=== PATIENT | female | born 1990 | race African-American/Black ===

== ENCOUNTER 2016-04-12 20:14 | Emergency (ER) | payer OTHER ==
[~2016-04-12] VITALS: Ht 182.9 cm; Wt 155.0 kg
[~2016-04-12 20:14] MED LIST: ALBU8I INH; BUSP10 PO; ZOFR4TAB3 SL
[2016-04-12 20:15] VITALS: BP 134/80; PULSE 129; RESP 18; TEMP 98.3; O2SAT 98
[2016-04-12] MEDS ORDERED: SODIUM CHLOR 0.9% 1000 ML INJ 1,000 ML IV SCH (20:53)
[2016-04-12] MEDS ORDERED: SODIUM CHLORIDE 0.9% FLUSH 5 ML FLUSH IVF PRN (21:00)
--- NOTE | 2016-04-12 21:03 | PD ---
HPI Chief Complaint: Neuro Symptoms/ Deficits Time Seen by Provider: 20:43 Travel History International Travel<30 days: No Contact w/Intl Traveler<30days: No Traveled to known affect area: No History of Present Illness HPI The patient is a 25-year-old after [place] female who presents to the emergency department with multiple complaints. The patient states she was out walking earlier today when she developed some suprapubic abdominal discomfort. The patient returned home and started to have a panic attack. The patient does have a history of anxiety and panic attacks, states she's not had a panic attack since last June. The patient felt like the right side of her face and right shoulder and right breast were weak and numb. The patient denied any dysarthria, difficulty moving her upper or lower extremities and denied any difficulty ambulating. The patient has had multiple somatic complaints in the past with her anxiety and panic attacks, but cannot attribute a specific identifying factor for today's events. The patient denies any history of TIA, CVA, hypertension, hyperlipidemia, or hypercoagulable disease. The patient denies any weakness or numbness upon presentation to the emergency department. The patient does take albuterol inhaler as needed. She does have a history of left meniscal surgery. She denies any known drug allergies. The patient's symptoms are mild to moderate, self resolving except for the suprapubic discomfort. The patient denies any dysuria, frequency, urgency, vaginal bleeding, or vaginal discharge. PFSH Past Medical History Hx Anticoagulant Therapy: No Asthma: Yes (since childhood) Anxiety: Yes Cardiovascular Problems: No Chemotherapy: No Cerebrovascular Accident: No Diabetes: No Diminished Hearing: No Respiratory: Yes ?: Not : 1 Para: 1 Past Surgical History Hysterectomy: No Other Surgery: Yes (L MENISCUS REPAIR 2006) Social History Alcohol Use: No Tobacco Use: No Substance Use: No Allergies-Medications (Allergen,Severity, Reaction): Coded Allergies: No Known Allergies (Unverified , 09/10/15) Reported Meds & Prescriptions Reported Meds & Active Scripts Active Zofran ODT (Ondansetron HCl) 4 Mg Tab 4 Mg SL Q6HR PRN FOR NAUSEA/VOMITING Buspar 10 mg Tab (Buspirone HCl) 10 Mg Tab 10 Mg PO Q8 PRN Ventolin Hfa (Albuterol Sulfate) 8 Gm Aero 2 Puff INH Q4 PRN Review of Systems Except as stated in HPI: all other systems reviewed are Neg General / Constitutional: No: Fever Eyes: No: Blurred Vision, Visual changes HENT: No: Headaches, Lightheadedness Cardiovascular: No: Chest Pain or Discomfort Gastrointestinal: No: Nausea, Vomiting, Diarrhea, Abdominal Pain Genitourinary: Positive: Pelvic Pain, No: Urgency, Frequency, Hematuria, Discharge, Vaginal Bleeding Musculoskeletal: No: Myalgias Skin: No Rash Neurologic: No: Weakness, Dizziness Psychiatric: Positive: Anxiety, No: Depression Physical Exam Narrative GENERAL: Awake, alert, pleasant 25-year-old female who appears her stated age and is in no acute respiratory distress. SKIN: Warm and dry. HEAD: Atraumatic. Normocephalic. EYES: Pupils equal and round. 4 mm bilateral and reactive. EOMs are intact. The patient is able to see fingers at a distance of 2 feet without difficulty. ENT: No nasal bleeding or discharge. Mucous membranes pink and moist. NECK: Trachea midline. No JVD. CARDIOVASCULAR: Regular rate and rhythm. No murmur appreciated. Heart rate in the 80s. RESPIRATORY: No accessory muscle use. Clear to auscultation. Breath sounds equal bilaterally. GASTROINTESTINAL: Abdomen soft, non-tender, nondistended. Obese, mild suprapubic discomfort. Back: No CVA tenderness. MUSCULOSKELETAL: No obvious deformities. No clubbing. No cyanosis. No edema. NEUROLOGICAL: Awake and alert. No obvious cranial nerve deficits. Motor grossly within normal limits. Normal speech. No dysarthria noted. Smile is symmetric. No drift of the upper or lower extremities. Sensation is symmetric on the face, arms, legs bilaterally. Finger to nose is normal. [id number] is normal. Negative station Romberg. Strength with abduction of the shoulders bilateral spinal 5. Extension of the elbows bilaterally is 5 out of 5. [employer] strength is 5 out of 5. Flexion of the elbows bilaterals 5 out of 5. Extension of the knees is 5 out of 5 bilateral. Plantar flexion is 5 out of 5. Flexion of the great toe bilaterally is 5 out of 5. Hip flexion bilaterally is 5 out of 5. PSYCHIATRIC: Appropriate mood and affect; insight and judgment normal. Data Data Last Documented VS Vital Signs Date Time Temp Pulse Resp B/P Pulse Ox O2 Delivery O2 Flow Rate FiO2 04/12/16 21:27 85 18 117/71 99 Room Air 04/12/16 20:15 98.3 Orders Complete Blood Count With Diff (04/12/16 20:53) Comprehensive Metabolic Panel (04/12/16 20:53) Urinalysis - C+S If Indicated (04/12/16 20:53) Iv Access Insert/Monitor (04/12/16 20:53) Ecg Monitoring (04/12/16 20:53) Oximetry (04/12/16 20:53) Sodium Chlor 0.9% 1000 Ml Inj (Ns 1000 M (04/12/16 20:53) Sodium Chloride 0.9% Flush (Ns Flush) (04/12/16 21:00) Ed Urine Pregnancytest Poc (04/12/16 20:53) Labs Laboratory Tests Test 04/12/16 21:00 White Blood Count 8.2 TH/MM3 Red Blood Count 4.74 MIL/MM3 Hemoglobin 11.2 GM/DL Hematocrit 35.0 % Mean Corpuscular Volume 73.8 FL Mean Corpuscular Hemoglobin 23.5 PG Mean Corpuscular Hemoglobin 31.9 % Concent Red Cell Distribution Width 15.4 % Platelet Count 300 TH/MM3 Mean Platelet Volume 8.3 FL Neutrophils (%) (Auto) 59.0 % Lymphocytes (%) (Auto) 34.2 % Monocytes (%) (Auto) 4.9 % Eosinophils (%) (Auto) 1.2 % Basophils (%) (Auto) 0.7 % Neutrophils # (Auto) 4.8 TH/MM3 Lymphocytes # (Auto) 2.8 TH/MM3 Monocytes # (Auto) 0.4 TH/MM3 Eosinophils # (Auto) 0.1 TH/MM3 Basophils # (Auto) 0.1 TH/MM3 CBC Comment AUTO DIFF Differential Comment AUTO DIFF CONFIRMED Platelet Estimate NORMAL Platelet Morphology Comment NORMAL Urine Color COLORLESS Urine Turbidity CLEAR Urine pH 6.5 Urine Specific [place] 1.001 Urine Protein NEG mg/dL Urine Glucose (UA) NEG mg/dL Urine Ketones NEG mg/dL Urine Occult Blood NEG Urine Nitrite NEG Urine Bilirubin NEG Urine Urobilinogen LESS THAN 2.0 MG/DL Urine Leukocyte Esterase NEG Urine RBC LESS THAN 1 /hpf Urine WBC 1 /hpf Urine Squamous Epithelial <1 /hpf Cells Microscopic Urinalysis Comment CULT NOT INDICATED Sodium Level 138 MEQ/L Potassium Level 4.0 MEQ/L Chloride Level 104 MEQ/L Carbon Dioxide Level 26.9 MEQ/L Anion Gap 7 MEQ/L Blood Urea Nitrogen 4 MG/DL Creatinine 0.91 MG/DL Estimat Glomerular Filtration 93 ML/MIN Rate Random Glucose 127 MG/DL Calcium Level 8.9 MG/DL Total Bilirubin 0.3 MG/DL Aspartate Amino Transf 38 U/L (AST/SGOT) Alanine Aminotransferase 45 U/L (ALT/SGPT) Alkaline Phosphatase 106 U/L Total Protein 9.0 GM/DL Albumin 3.8 GM/DL MDM Medical Decision Making Medical Screen Exam Complete: Yes Emergency Medical Condition: Yes Medical Record Reviewed: Yes Interpretation(s) Laboratory Tests Test 04/12/16 21:00 White Blood Count 8.2 TH/MM3 Red Blood Count 4.74 MIL/MM3 Hemoglobin 11.2 GM/DL Hematocrit 35.0 % Mean Corpuscular Volume 73.8 FL Mean Corpuscular Hemoglobin 23.5 PG Mean Corpuscular Hemoglobin 31.9 % Concent Red Cell Distribution Width 15.4 % Platelet Count 300 TH/MM3 Mean Platelet Volume 8.3 FL Neutrophils (%) (Auto) 59.0 % Lymphocytes (%) (Auto) 34.2 % Monocytes (%) (Auto) 4.9 % Eosinophils (%) (Auto) 1.2 % Basophils (%) (Auto) 0.7 % Neutrophils # (Auto) 4.8 TH/MM3 Lymphocytes # (Auto) 2.8 TH/MM3 Monocytes # (Auto) 0.4 TH/MM3 Eosinophils # (Auto) 0.1 TH/MM3 Basophils # (Auto) 0.1 TH/MM3 CBC Comment AUTO DIFF Differential Comment AUTO DIFF CONFIRMED Platelet Estimate NORMAL Platelet Morphology Comment NORMAL Urine Color COLORLESS Urine Turbidity CLEAR Urine pH 6.5 Urine Specific [place] 1.001 Urine Protein NEG mg/dL Urine Glucose (UA) NEG mg/dL Urine Ketones NEG mg/dL Urine Occult Blood NEG Urine Nitrite NEG Urine Bilirubin NEG Urine Urobilinogen LESS THAN 2.0 MG/DL Urine Leukocyte Esterase NEG Urine RBC LESS THAN 1 /hpf Urine WBC 1 /hpf Urine Squamous Epithelial <1 /hpf Cells Microscopic Urinalysis Comment CULT NOT INDICATED Sodium Level 138 MEQ/L Potassium Level 4.0 MEQ/L Chloride Level 104 MEQ/L Carbon Dioxide Level 26.9 MEQ/L Anion Gap 7 MEQ/L Blood Urea Nitrogen 4 MG/DL Creatinine 0.91 MG/DL Estimat Glomerular Filtration 93 ML/MIN Rate Random Glucose 127 MG/DL Calcium Level 8.9 MG/DL Total Bilirubin 0.3 MG/DL Aspartate Amino Transf 38 U/L (AST/SGOT) Alanine Aminotransferase 45 U/L (ALT/SGPT) Alkaline Phosphatase 106 U/L Total Protein 9.0 GM/DL Albumin 3.8 GM/DL Differential Diagnosis Differential diagnosis includes anxiety, panic attack, paresthesias, CVA, TIA, intracranial hemorrhage, subarachnoid hemorrhage, hypocalcemia, hypokalemia, UTI. Narrative Course The patient's neurologic exam is unremarkable, her NIHSS is 0. There are no identifiable neurologic deficits. IV was established, labs are drawn and sent, and the patient was placed on cardiac telemetry monitoring and continuous pulse oximetry monitoring. The patient has no headache and no meningeal signs, I do not believe CT the brain is warranted with no neurologic deficits, headache, and no current symptoms. I doubt CVA/TIAs patient has no risk factors or history of hypercoagulable disorders. CMP was sent to lab to evaluate calcium and potassium. UA was sent to lab and bedside UA test was obtained. The patient was comfortable with this plan of care and workup after discussion. Laboratory evaluation is unremarkable, electrolytes including sodium, potassium, and calcium are normal. Bedside test was negative. UA is negative. Patient's vitals were reassessed, heart rate was in the 70s after having a discussion with the patient. Patient stable for outpatient follow-up. Diagnosis Primary Impression: Paresthesias Additional Impression: Pelvic pain Patient Instructions: General Instructions Additional Instructions: Follow-up with your primary physician. Please provide the patient a copy of her labs at discharge. Return if symptoms worsen or progress. Med/Other Pt SpecificInfo: No Change to Meds Disposition: 01 DISCHARGE HOME Condition: Stable Rodolfo Wagner MD Apr 12, 2016 21:03
[2016-04-12 21:16] VITALS: O2SAT 99
[2016-04-12 21:24] LABS: AUTOMATED NEUTROPHIL # 4.8 TH/MM3 (1.8-7.7); BASOPHIL # 0.1 TH/MM3 (0-0.2); BASOPHIL % 0.7 % (0.0-2.0); EOSINOPHIL # 0.1 TH/MM3 (0-0.4); EOSINOPHIL % 1.2 % (0.0-4.0); LYMPH % 34.2 % (9.0-44.0); LYMPHOCYTE # 2.8 TH/MM3 (1.0-4.8); MEAN CELL VOLUME 73.8 FL (80.0-100.0); MEAN CORPUSCULAR HEMOGLOBIN 23.5 PG (27.0-34.0); MEAN CORPUSCULAR HGB CONC 31.9 % (32.0-36.0); MONO % 4.9 % (0.0-8.0); PLATELET COUNT 300 TH/MM3 (150-450); RED BLOOD COUNT 4.74 MIL/MM3 (4.00-5.30); RED CELL DISTRIBUTION WIDTH 15.4 % (11.6-17.2); WHITE BLOOD COUNT 8.2 TH/MM3 (4.0-11.0)
[2016-04-12 21:27] VITALS: BP 117/71; PULSE 85; RESP 18; O2SAT 99
[2016-04-12 21:27] LABS: BLOOD, URINE NEG (NEG); COMMENT (UR) CULT NOT INDICATED; CULTURE IF INDICATED CULT NOT INDICATED; GLUCOSE,URINE NEG (NEG); HEMO FLAGS AUTO DIFF; KETONE, URINE NEG (NEG); NITRITE,URINE NEG (NEG); PH, URINE 6.5 (5.0-8.5); SQUAMOUS EPITHELIAL CELL URINE <1 /hpf (0-5); URINE COLOR COLORLESS (YELLW/STRAW)
[2016-04-12 21:54] LABS: PLATELET ESTIMATE SMEAR NORMAL (NORMAL); PLATELET MORPHOLOGY NORMAL (NORMAL); SCAN/DIFF AUTO DIFF CONFIRMED
[2016-04-12 22:02] LABS: ANION GAP 7 MEQ/L (5-15); AST (GOT) 38 U/L (15-37); BICARBONATE 26.9 MEQ/L (21.0-32.0); BLOOD UREA NITROGEN 4 MG/DL (7-18); CHLORIDE 104 MEQ/L (98-107); GLOMERULAR FILTRATION RATE 93 ML/MIN (>89); SODIUM (NA) 138 MEQ/L (136-145)
[2016-04-12 22:05] LABS: ALKALINE PHOSPHATASE 106 U/L (45-117); ALT (GPT) 45 U/L (10-53); TOTAL BILIRUBIN ADULT 0.3 MG/DL (0.2-1.0)
== END 2016-04-12 22:34 | disposition home or self-care (01) ==
LOC: NEPD 20:14
DX: R20.2 Paresthesia of skin (principal); R10.2 Pelvic and perineal pain; F41.9 Anxiety disorder, unspecified
CPT/HCPCS: 80053; 81001; 84703; 85025; 96360; 99284; J7030